=== PATIENT | female | born 1980 | race Caucasian/White ===

== ENCOUNTER 2019-02-02 15:53 | Emergency (ER) | payer BC, OTHER ==
[~2019-02-02] VITALS: Ht 162.6 cm; Wt 82.7 kg
[2019-02-02 17:38] LABS: BASOPHILS % (AUTO) 0.5 % (0-1); EOSINOPHILS # (AUTO) 0.1 X10'3 (0-0.9); EOSINOPHILS % (AUTO) 1.2 % (0-6); HEMATOCRIT 38.1 % (35.0-45.0); LYMPHOCYTES # (AUTO) 2.7 X10'3 (1.1-4.8); LYMPHOCYTES % (AUTO) 33.7 % (21-51); MEAN CORPUSCULAR HEMOGLOBIN 33.5 PG (27.0-31.0); MEAN CORPUSCULAR HGB CONC 34.1 g/dL (33.0-36.5); MEAN CORPUSCULAR VOLUME 98.3 FL (78-98); MEAN PLATELET VOLUME 7.8 FL (7.4-10.4); MONOCYTES # (AUTO) 0.6 X10'3 (0-0.9); NEUTROPHILS # (AUTO) 4.6 X10'3 (1.8-7.7); NEUTROPHILS % (AUTO) 57.6 % (42-75); PLATELET COUNT 353 X10'3 (140-440); RED BLOOD COUNT 3.88 X10'6 (4.20-5.60); RED CELL DISTRIBUTION WIDTH 12.7 % (11.5-14.5); WHITE BLOOD COUNT 8.1 X10'3 (4.5-11.0)
[2019-02-02 17:50] LABS: PARTIAL THROMBOPLASTIN TIME 27 SECONDS (22-32)
[2019-02-02 17:52] LABS: ALANINE AMINOTRANSFERASE 31 U/L (12-78); ALBUMIN 3.9 G/DL (3.4-5.0); ALKALINE PHOSPHATASE 86 IU/L (46-116); ANION GAP 9 (8-16); ASPARTATE AMINO TRANSFERASE 14 U/L (10-37); BILIRUBIN,TOTAL 0.6 MG/DL (0.1-1.0); BLOOD UREA NITROGEN 11 MG/DL (7-18); BUN/CREATININE RATIO 18.3 (6.6-38.0); CALCIUM 8.8 MG/DL (8.5-10.1); CHLORIDE 106 MMOL/L (99-107); GLUCOSE 102 MG/DL (70-104); MAGNESIUM 1.9 MG/DL (1.5-2.4); POTASSIUM 3.9 MMOL/L (3.5-5.1); SODIUM 143 MMOL/L (135-145); TOTAL CARBON DIOXIDE 27.6 MMOL/L (24-32); TOTAL PROTEIN 7.7 G/DL (6.4-8.2); eGFR > 90 ML/MIN
[2019-02-02 19:21] LABS: CLARITY,URINE CLEAR (Clear); COLOR,URINE YELLOW (Yellow); GLUCOSE, URINE NEGATIVE (Neg); KETONES,URINE NEGATIVE (Neg); LEUKOCYTE ESTERASE ,URINE NEGATIVE (Neg); NITRITES, URINE NEGATIVE (Neg); OCCULT BLOOD,URINE NEGATIVE (Neg); PROTEIN,URINE NEGATIVE (Neg); UROBILINOGEN,URINE 0.2 E.U/dL (0.2-1.0)
[2019-02-02 19:24] LABS: UA COLLECTION TYPE CLN CATCH MIDSTREAM
[2019-02-02 21:14] VITALS: BP 128/86
== END 2019-02-02 21:15 | disposition home or self-care (01) ==
LOC: ER 15:54
DX: I16.0 Hypertensive urgency (principal); H53.8 Other visual disturbances; Z88.1 Allergy status to other antibiotic agents; Z88.5 Allergy status to narcotic agent
CPT/HCPCS: 36415; 70450; 71045; 80053; 81003; 83735; 85025; 85610; 85730; 93005; 99284

== ENCOUNTER 2022-08-12 12:12 | Emergency (ER) | payer BC, OTHER ==
[~2022-08-12] VITALS: Ht 162.6 cm; Wt 75.0 kg
[2022-08-12 14:09] LABS: BASOPHILS # (AUTO) 0.1 X10'3 (0-0.2); BASOPHILS % (AUTO) 0.8 % (0-1); EOSINOPHILS # (AUTO) 0.1 X10'3 (0-0.9); EOSINOPHILS % (AUTO) 1.8 % (0-6); HEMATOCRIT 38.4 % (35.0-45.0); LYMPHOCYTES % (AUTO) 27.7 % (21-51); MEAN CORPUSCULAR HEMOGLOBIN 36.9 PG (27.0-31.0); MEAN CORPUSCULAR HGB CONC 33.8 g/dL (33.0-36.5); MEAN CORPUSCULAR VOLUME 109.1 FL (78-98); MEAN PLATELET VOLUME 7.4 FL (7.4-10.4); MONOCYTES # (AUTO) 0.6 X10'3 (0-0.9); MONOCYTES % (AUTO) 8.7 % (2-12); NEUTROPHILS # (AUTO) 4.3 X10'3 (1.8-7.7); PLATELET COUNT 328 X10'3 (140-440); RED BLOOD COUNT 3.52 X10'6 (4.20-5.60); RED CELL DISTRIBUTION WIDTH 13.7 % (11.5-14.5); WHITE BLOOD COUNT 7.1 X10'3 (4.5-11.0)
[2022-08-12 14:24] LABS: ALANINE AMINOTRANSFERASE 21 U/L (12-78); ALBUMIN 3.5 G/DL (3.4-5.0); ALKALINE PHOSPHATASE 68 IU/L (46-116); ANION GAP 11 (8-16); ASPARTATE AMINO TRANSFERASE 21 U/L (10-37); BILIRUBIN,TOTAL 0.9 MG/DL (0.1-1.0); BLOOD UREA NITROGEN 12 MG/DL (7-18); BUN/CREATININE RATIO 14.5 (6.6-38.0); CALCIUM 8.7 MG/DL (8.5-10.1); CHLORIDE 107 MMOL/L (99-107); CREATININE 0.83 MG/DL (0.40-0.90); GLUCOSE 94 MG/DL (70-104); LIPASE 100 U/L (73-393); POTASSIUM 3.7 MMOL/L (3.5-5.1); SODIUM 145 MMOL/L (135-145); TOTAL CARBON DIOXIDE 27.5 MMOL/L (24-32); eGFR 75 ML/MIN
[2022-08-12 14:35] LABS: URINE HCG NEGATIVE (NEG)
[2022-08-12 14:44] LABS: CLARITY,URINE CLEAR (Clear); COLOR,URINE YELLOW (Yellow); GLUCOSE, URINE NEGATIVE (Neg); KETONES,URINE NEGATIVE (Neg); LEUKOCYTE ESTERASE ,URINE NEGATIVE (Neg); NITRITES, URINE NEGATIVE (Neg); OCCULT BLOOD,URINE TRACE-INTACT (Neg); PROTEIN,URINE NEGATIVE (Neg); UROBILINOGEN,URINE 0.2 E.U/dL (0.2-1.0)
[2022-08-12 14:46] LABS: UA COLLECTION TYPE CLN CATCH MIDSTREAM
[2022-08-12 14:53] LABS: BACTERIA,URINE NONE SEEN /HPF (Neg); MUCUS STRANDS NONE SEEN /LPF (Neg); RBC,URINE 0-2 /HPF (0-2); SQUAMOUS EPITHELIAL CELL,UR FEW /LPF (FEW); WBC,URINE 0-4 /HPF (0-4)
[2022-08-12 15:10] VITALS: BP 135/83
[2022-08-12] MEDS ORDERED: TRAM50TA2 PO (16:13)
[2022-08-12] MEDS ORDERED: ONDA4TAB12 PO (16:13)
[2022-08-12] MEDS ORDERED: LEVO-65 PO (16:22)
== END 2022-08-12 16:27 | disposition home or self-care (01) ==
LOC: ER 12:13
DX: K80.50 Calculus of bile duct without cholangitis or cholecystitis without obstruction (principal); K80.20 Calculus of gallbladder without cholecystitis without obstruction; E03.9 Hypothyroidism, unspecified; Z88.0 Allergy status to penicillin; Z88.1 Allergy status to other antibiotic agents; Z88.5 Allergy status to narcotic agent
CPT/HCPCS: 36415; 76700; 80053; 81001; 81025; 83690; 85025; 99284

== ENCOUNTER 2025-01-17 08:07 | Inpatient (IN) | payer BC, OTHER ==
[~2025-01-17] VITALS: Ht 165.1 cm; Wt 73.0 kg
[~2025-01-17 08:07] MED LIST: LEVO50TA PO; NALT50TA5 PO; ONDA-243 PO; PHEN37.58 PO
--- NOTE | 2025-01-17 08:23 | ELECTROCARDIOGRAPH REPORT ---
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 Bret Browne Measurements Intervals [place] Rate: 66 P: 33 UT: 153 QRS: 5 QRSD: 124 T: 20 QT: 427 QTc: 448 Interpretive Statements Sinus rhythm IVCD, consider atypical RBBB Electronically Signed On 01-17-2025 20:10:[address] Bret Browne Please click the below link to view image of tracing.
--- NOTE | 2025-01-17 08:27 | Physician Documentation ---
History of Present Illness ~ Chief Complaint: Stroke Alert Stated Complaint: STROKE ALERT Time Seen by MD: 08:19 Primary Medical Doctor: Mai Source: patient Mode of Arrival: EMS Exam Limitations: no limitations HPI Patient with a history of benign pituitary tumor and sinus infections in with neurologic symptoms that started when she woke up at 7:00 a.m.. She also has a history of migraines. She gets a migraine 1 to 2 times a year. She woke up at 2:00 a.m. and was fine and then went back to sleep and woke up at 7 and had a bunch of green drainage come out of her sinuses. She also felt like her left arm was dissociated like she did not have control over it and she felt like her speech was slurred. The speech slurring lasted about 30 minutes but she feels like her left arm is still wear. She has a right-sided headache that is 3/10. It is starts on the top of her head and goes down her neck. No posterior neck pain. No fever. She states that her migraines usually get an aura without an actual headache and she can take something and it goes away. Her vision seems blurred on the left side. That does seem normal with what she gets with a migraine. She states her sinuses are messed up and she just finished prednisone and Levaquin from her ENT doctor here. She has follow up with a specialist for the 1st time at [place] in late January. Used to be a light smoker but quit 11 years ago. Does take marijuana every night to help her sleep. No alcohol. Takes mounjaro for weight loss. Medication Reconciliation Allergies: Coded Allergies: Penicillins (Verified Allergy, Unknown, 08/12/22) cephalexin (Verified Allergy, Unknown, 08/12/22) hydrocodone (Verified Allergy, Unknown, 08/12/22) Uncoded Allergies: PENICILLIN (Allergy, Intermediate, eyes swell shut, 10/24/22) PCN (Allergy, Unknown, 02/02/19) Scheduled [maunjauro], 2.5 MG SQ FRIDAY, (Reported) Discontinued Medications Levothyroxine Sodium (Synthroid), 1 TAB PO DAILY, (Reported) Discontinued Reason: patient no longer taking Naltrexone Hcl (Naltrexone Hcl), 1 TAB PO DAILY Discontinued Reason: patient no longer taking ONDANSETRON ODT 4mg tablet (Ondansetron Odt), 1 TABLET PO Q6H PRN for nausea/vomiting Discontinued Reason: patient no longer taking Phentermine HCl (Phentermine HCl), 1 TAB PO QAM, (Reported) Discontinued Reason: patient no longer taking Past Medical History Past Medical History: *ENDOCRINE*, Hypothyroidism Past Surgical History: other Drug Use: none Lives with: Spouse Lives In: Home Occupation: employed Review of Systems All Other Systems at this time: Reviewed and Negative Physical Exam Vital Signs: Temperature: 98.5, Source: Oral, Heart Rate: 79, Respiratory Rate: 14, BP: 161/113, Pulse Oximetry: 98, Weight: 73.000 General Appearance: alert, WD/WN, no apparent distress Pupils/EOM/Fundus: PERRLA, EOM intact Neck: normal inspection, full range of motion, supple Respiratory: lungs clear, normal breath sounds, no respiratory distress Cardiovascular: regular rate, rhythm, no JVD, no murmur Extremities: normal inspection, no calf tenderness Orientation / Memory / CN Exam: oriented x3, executive producer II-XII nml as tested Motor / Sensory: no motor deficit, no sensory deficit, no pronator drift, other (Negative stroke scale) Coordination / Gait: normal finger to nose Psychiatric: appropriate Skin: warm/dry, normal color t-PA t-PA given w/in 2hrs?: No (Patient was not a candidate for tPA as she was outside of the window) Progress Progress Note Patient in with possible stroke versus migraine. Discussed with Dr. Orourke the neurologist who recommended admission for further evaluation of stroke. Discussed this with the patient who expressed understanding. Patient is stable on admission to hospitalist team. Results/Orders Results/Orders Orders - REY HUSSEIN MD Monitor (01/17/25 08:20) 2 Large Bore Ivs (01/17/25 08:20) Chest,Single View (01/17/25 08:20) Accucheck (01/17/25 08:20) Ct Stroke Alert (01/17/25 08:00) [place] Prov.Neuro Consult (01/17/25 08:20) Page Hospitalist (01/17/25 09:04) Fill Out Med Reconciliation (01/17/25 09:04) Completed Orders - REY HUSSEIN MD Cbc/Diff (01/17/25 08:20) Electrocardiogram (01/17/25 08:20) Chest,Single View (01/17/25 08:20) Ct Stroke Alert (01/17/25 08:00) BMP (01/17/25 08:20) PTT (01/17/25 08:20) Pt Inr (01/17/25 08:20) Labetalol Inj. (Trandate 20 Mg/4ml Syrin (01/17/25 08:30) Ketorolac Trometh 30mg/Ml Vial (Toradol (01/17/25 09:00) Hgb A1c (01/17/25 08:37) MG (01/17/25 08:37) TSH (01/17/25 08:37) Medications Received in ER Medications (Trade) Dose Ordered Sig/Gaurav Route PRN Reason Start Time Stop Time Status Last Admin Dose Admin (Toradol inj. 30mg/ml) 30 mg ONCE ONCE IV 01/17/25 09:00 01/17/25 09:01 DC 01/17/25 09:11 30 MG Sodium Chloride 1,000 ml @ 100 mls/hr Q10H IV 01/17/25 10:15 01/17/25 10:42 100 MLS/HR Vital Signs 01/17/25 01/17/25 01/17/25 01/17/25 08:08 08:18 08:40 08:49 Temp 98.5 Pulse 79 71 Resp 14 11 12 B/P (MAP) 161/113 137/97 (110) Pulse Ox 100 98 100 O2 Delivery Room Air* O2 Flow Rate 0 0 FiO2 21 01/17/25 01/17/25 01/17/25 09:03 09:11 09:40 Pulse 71 Resp 13 14 14 B/P (MAP) 133/84 Pulse Ox 99 Laboratory Tests Test 01/17/25 08:37 White Blood Count 7.3 Red Blood Count 3.95 L Hemoglobin 14.1 Hematocrit 41.8 Mean Corpuscular Volume 105.7 H Mean Corpuscular Hemoglobin 35.7 H Mean Corpuscular Hemoglobin Concent 33.8 Red Cell Distribution Width 14.2 Platelet Count 309 Mean Platelet Volume 7.9 Neutrophils (%) (Auto) 64.4 Lymphocytes (%) (Auto) 25.4 Monocytes (%) (Auto) 7.6 Eosinophils (%) (Auto) 1.9 Basophils (%) (Auto) 0.7 Neutrophils # (Auto) 4.7 Lymphocytes # (Auto) 1.8 Monocytes # (Auto) 0.6 Eosinophils # (Auto) 0.1 Basophils # (Auto) 0.1 CBC Comment Prothrombin Time 9.8 INR International Normalized Ratio 1.0 Activated Partial Thromboplast Time 26 Coagulation Comments Sodium Level 140 Potassium Level 4.3 Chloride Level 105 Carbon Dioxide Level 27.0 Anion Gap 8 Blood Urea Nitrogen 13 Creatinine 0.66 Estimated GFR/1.73 m2 > 90 BUN/Creatinine Ratio 19.7 Glucose Level 98 Hemoglobin A1c 4.9 Calcium Level 8.9 Magnesium Level 1.9 Albumin 3.8 Thyroid Stimulating Hormone (TSH) 1.55 Chemistry Comments EKG/XRAY/CT/US/VASC/MRI EKG : EKG Rate: 66 EKG: NSR, no ST T wave changes Hypertrophy: none Medical Decision Making Additional Information Differential includes but is not limited to: CVA, TIA, migraine, electrolyte derangement, dehydration, sinus infection Departure Disposition: 09 ADMITTED INPATIENT Admitted to Inpatient Unit: yes, to hospitalist Admission Level of Care: Med/Surg Impression: Primary Impression: Left-sided weakness Additional Impression: Blurred vision, left eye Condition: Stable Referrals: NO PRIMARY CARE PROVIDER (PCP) Education Educated: Patient, Family Educated regarding: diagnosis Signature Scribe Signature: No scribe used Attestation: No scribe used REY HUSSEIN MD Jan 17, 2025 08:27
[2025-01-17] MEDS: labetalol 20mg/4ml (5mg/ml) syringe IV ONE (08:30)
--- NOTE | 2025-01-17 08:43 | RADIOLOGY REPORT ---
CHEST RADIOGRAPH Indication: Stroke Alert Technique: Single frontal view of the chest was obtained COMPARISON: None FINDINGS: Lines and Tubes: None Lungs: Clear Pleura: No effusion. No pneumothorax. Cardiomediastinal contours: Unremarkable Bones: Unremarkable IMPRESSION: No acute disease.
--- NOTE | 2025-01-17 08:47 | RADIOLOGY REPORT ---
CT CT STROKE ALERT INDICATION: Stroke Alert EXAM DATE: 01/17/2025 08:21 AM COMPARISON: None RADIATION DOSE: CTDIvol: 62 mGy, DLP: 1229 mGy*cm PROCEDURE: CT scans of the head were obtained from the vertex to the skull base. Sagittal and coronal reconstructions were provided. All CT scans at this medical facility are performed using dose modulation techniques as appropriate t o a performed exam including the following: Automated exposure control was utilized; adjustment of th e MA and/or KV according to patient size; and use of iterative reconstruction technique. FINDINGS: There is sulcal and ventricular prominence. The brainshows normal morphology and landaverde-whi te matter differentiation, without intracranial hemorrhage, extra-axial fluid collection, mass effect or acute large vessel infarct. The ventricles are normal in size. The basal cisterns are patent. The skull and visible facial bones are intact. The paranasal sinuses are opacified with mucous. The mast oid air cells and middle ear cavities are well-aerated. The soft tissues of the scalp are unremarkabl e. IMPRESSION: No acute intracranial abnormality.
[2025-01-17 08:54] LABS: MEAN PLATELET VOLUME 7.9 FL (7.4-10.4); RED CELL DISTRIBUTION WIDTH 14.2 % (11.5-14.5)
--- NOTE | 2025-01-17 09:04 | CONSULTATION REPORT ---
History of Present Illness Providers to CC ~ Refering MD: Gerri at [facility] Allergies: Coded Allergies: Penicillins (Verified Allergy, Unknown, 08/12/22) cephalexin (Verified Allergy, Unknown, 08/12/22) hydrocodone (Verified Allergy, Unknown, 08/12/22) Uncoded Allergies: PENICILLIN (Allergy, Intermediate, eyes swell shut, 10/24/22) PCN (Allergy, Unknown, 02/02/19) Home Medications Home Medications Active Ondansetron Odt (Ondansetron HCl) 4 Mg Tab.rapdis 1 Tablet PO Q6H PRN Naltrexone Hcl 50 Mg Tablet 1 Tab PO DAILY Reported Synthroid (Levothyroxine Sodium) 50 Mcg Tablet 1 Tab PO DAILY Phentermine HCl 37.5 Mg Tablet 1 Tab PO QAM Physical Exam Last Vital Signs Recorded: Temperature: 98.1, Source: Oral, Heart Rate: 71, Respiratory Rate: 13, BP: 133/84, Pulse Oximetry: 99, Weight: 73.000 Neck: normal inspection, full range of motion, supple Respiratory: lungs clear, normal breath sounds, no respiratory distress Cardiovascular: regular rate, rhythm, no JVD, no murmur Assessment/Plan Additional Plan [place] [facility] Note # Demographics Consult Type: Acute Stroke Level 2 (4.5-24 hrs) Patient Location: Emergency Room First Name: AILEEN Last Name: IVA Date of : 1980 Age: 44 Gender: Female Facility: [facility] Time of Initial Page ([place] Time): 01/17/2025 08:23 Time of Return Call ( Time): 01/17/2025 08:24 # HPI Chief Complaint: - weakness (focal) History: 44 y/o woman woke up normal at 2 AM in setting of sinus infection. Then had sudden green draining from her nose. Slept for about 90 minutes but woke with difficulty breathing due to sinus symptoms. Then got up at 7:10 and walking to the bathroom her left arm was not responding to her. Then called her boyfriend and her speech was slurred. Had blurred vision on the left side. Does get migraines with flashing lights which she had also. Now can moving the arm well. Left arm symptoms lasted approx 5 minutes. No thinners. Was normal when first started walking in to the bathroom. Never had similar symptoms previously. Does have hx of brain tumor removed at [place]--pituitary tumor. Last checked 8 months ago. # Scores Time of exam and NIHSS (): 01/17/2025 08:37 Level of Consciousness 1a: [0] = Alert; keenly responsive LOC Questions 1b: [0] = Answers both questions correctly LOC Commands 1c: [0] = Performs both tasks correctly Best Gaze 2: [0] = Normal Visual 3: [0] = No visual loss Facial Palsy 4: [0] = Normal symmetrical movements Motor Arm Left 5a: [0] = No drift Motor Arm Right 5b: [0] = No drift Motor Leg Left 6a: [0] = No drift Motor Leg Right 6b: [0] = No drift Limb Ataxia 7: [0] = Absent Sensory 8: [0] = Normal Best Language 9: [0] = No aphasia Dysarthria 10: [0] = Normal Extinction and Inattention 11: [0] = No abnormality NIHSS Total: 0 # Exam Vitals: vital signs reviewed SBP: 137 DBP: 97 Cranial Nerves: left sided vision is blurred but no # Data Head CT: - no bleed - preliminarily reviewed by me, please refer to radiology read for official reading # Assessment Impression: - Weakness Possible TIA/Minor stroke vs other stroke mimics # Plan Thrombolytic/Intervention: NOT IV Thrombolysis or IA Intervention candidate Thrombolytic Exclusion (< 3 hour window): - non-disabling deficit Intraarterial Exclusion: - clinical exam not consistent with presence of large vessel occlusion (LVO), can reconsider if LVO found on vascular imaging Target Blood Pressure: SBP < 220 Labs: - hemoglobin A1c - lipid panel Imaging: (urgency: STAT): - CT Angiogram Head and CT Angiogram Neck AND call back with results if abnormal Imaging: (urgency: routine): - MRI Brain without contrast Diagnostic Test: - echo with bubble study Therapy/Evaluation: - PT/OT evaluation - speech/swallow consultation Medication: - aspirin 81 mg daily - start statin with goal of LDL < 70 Other: - If patient has any neurological deterioration please call me back immediately - LDL < 70 - permissive hypertension - telemetry monitoring - I have discussed my recommendations with the referring provider # Logistics Attestation of consult completion: The patient is located at: [facility]. Facility staff participated in the visit. I performed this telemedicine visit from my offsite office utilizing interactive 2 way audio and visual telecommunication technology. Total time spent in telemedicine encounter: I spent 20 minutes reviewing clinical data and/or imaging, obtaining history, examining the patient, communicating with the onsite care team, and in preparation of this report. # Demographics First Name: AILEEN Last Name: ENRIQUE Facility: [facility] SELMA BARBER MD Jan 17, 2025 09:04
[2025-01-17 09:08] LABS: CREATININE 0.66 MG/DL (0.40-0.90); TOTAL CARBON DIOXIDE 27.0 MMOL/L (24-32); eCRCL 96 ML/MIN; eGFR > 90 ML/MIN
[2025-01-17] MEDS: ketorolac trometh 30MG/ML vial 30 MG/ML VIAL IV ONE (09:11)
[2025-01-17 09:13] LABS: APTT 26 SECONDS (22-32); INR 1.0 INR
[2025-01-17] MEDS ORDERED: magnesium sulf-water 4G/100mL 100 ML IV PRN (10:15)
[2025-01-17] MEDS ORDERED: mag hydrox/Alum hydrox/simeth 30ml oral suspension PO PRN (10:15)
[2025-01-17] MEDS ORDERED: potassium Cl 40MEQ/1/2NS 520ml 520 ML IV PRN (10:15)
[2025-01-17] MEDS ORDERED: potassium Cl 20 mEq SR tablet PO PRN ×2 (10:15)
[2025-01-17] MEDS ORDERED: ondansetron/PF 4mg/2ml inj IV PRN (10:15)
[2025-01-17] MEDS ORDERED: magnesium sulf-water 2g/50mL 50 ML IV PRN (10:15)
[2025-01-17] MEDS ORDERED: magnesium hydroxide 30ml (MOM) UD suspension PO PRN (10:15)
[2025-01-17] MEDS ORDERED: magnesium Cl slow-release 64mg tablet PO PRN (10:15)
[2025-01-17] MEDS: normal saline 1000ml 1,000 ML IV SCH (10:42)
[2025-01-17] MEDS ORDERED: [UNRECOGNIZED DRUG - OTHER] SQ (10:55)
[2025-01-17] MEDS ORDERED: TIRZ2.5P SQ (11:15)
--- NOTE | 2025-01-17 12:37 | RADIOLOGY REPORT ---
INDICATION: stroke COMPARISON: None TECHNIQUE: CTA head with intravenous contrast. CTA neck with intravenous contrast. 3D image postproce ssing was performed on a dedicated workstation and images were used for interpretation and reporting. Radiation Dose Information: CT Dose: CTDI volume is 18 mGy. Dose-length product is 618 mGy*cm CONTRAST: Type of contrast: Omni 350 Contrast injected: 100 ml FINDINGS: CTA head: There is normal enhancement of the visualized distal internal carotid, anterior and middle cerebral a rteries. There is a normal anterior communicating artery complex. The vertebral, basilar, cerebellar and posterior cerebral arteries are within normal limits. The early parenchymal enhancement is grossl y unremarkable. The visualized intracranial venous structures are grossly unremarkable. Partially emp ty sella. CTA neck: The visualized thoracic aortic arch and proximal great vessels are unremarkable. The left common, internal and external carotid arteries are within normal limits. The right common, internal and external carotid arteries are within normal limits. The cervical segments of the right and left vertebral arteries are within normal limits. The limited visualized lung apices are clear. Palmer tonsils appear enlarged right greater than lef t. Bilateral maxillary and ethmoid sinus disease. IMPRESSION: 1. No evidence of hemodynamically significant intracranial stenosis, proximal occlusion or aneurysm. 2. No evidence of hemodynamically significant carotid stenosis or dissection. 3. Mild prominence of the palatine tonsils right greater than left. Clinical correlation and direct inspection is recommended. 4. Partially empty sella. All CT scans at this medical facility are performed using dose modulation techniques as appropriate t o a performed exam including the following: Automated exposure control was utilized; adjustment of th e MA and/or KV according to patient size; and use of iterative reconstruction technique. HS:Y
--- NOTE | 2025-01-17 12:47 | HISTORY AND PHYSICAL-Residence ---
History & Physical Providers to CC Resident Creating Document: FABBY ORTEGA, RES ~ History of Present Illness Primary Medical Doctor: Gerri at [facility] Reason for Admit\Complaint: Slurred speech History of Present Illness 44-year-old female patient with past medical history of migraine, pituitary tumor S/P surgical removal five years ago, end-stage renal diabetes, came to the hospital with chief complaint of slurred speech. The patient states that she woke up around 2:00 a.m. in the morning with some sinus congestion, the patient was able to go back to sleep. She woke up approximately at 7:00 a.m. at that time she decided to call to her boyfriend and she states that during this time she was completely normal. After that call she went to the restroom and suddenly she felt that the sensation of her left arm was diminished stating that when she touched her abdomen she was able to feel something touching her abdomen but she did not feel left her arm. After noticing this she tried touching her face and she experienced the same sensation where she felt something touching her face but she did not feel her left arm; because of this the patient decided to do this in front of her mirror and she noticed some facial droop in the right side of his mouth. Because of the symptoms the patient called again to her boyfriend who noticed that she was with slurred speech reason for which he decided to bring her to the hospital. Associated to these the patient also endorses headache localized in the right parietal area with some radiation to the right side of his neck currently 3/10 in intensity described as a dull ache pain. Allergies: Coded Allergies: Penicillins (Verified Allergy, Unknown, 08/12/22) cephalexin (Verified Allergy, Unknown, 08/12/22) hydrocodone (Verified Allergy, Unknown, 08/12/22) Uncoded Allergies: PENICILLIN (Allergy, Intermediate, eyes swell shut, 10/24/22) PCN (Allergy, Unknown, 02/02/19) Home Medications Home Medications Active Reported Mounjaro (Tirzepatide) 2.5 Mg/0.5 Ml Pen.injctr Mg SQ FRIDAY Past Medical History Past Medical History Migraines for which she occasionally takes ibuprofen 200 mg as needed as abortive therapy. Brain tumor (pituitary tumor) removed five years ago in [place]. She does have a follow-up appointment in January. Gestational diabetes 10 years ago. Obesity currently using [place] to lose weight. She does have a history of hypothyroidism currently not taking medication, as per patient after her pituitary mass was removed on further follow-up she did not need to keep taking medication for his thyroid. Acute sinusitis two weeks ago treated with the prednisone and Levaquin two weeks ago by her ENT. Past Surgical History Surgical History Comment Pituitary tumor s/p surgical removal five years ago in [place]. Cholecystectomy 1-1/2 years ago. Two C-sections. Tummy tack. Breast reduction surgery. Past Social History Smoking: Quit greater than 1 year (As per patient she quit smoking 11 years ago, she used to smoke 1/4 of pack a day for 15 years.) Alcohol Use: Rarely Drug Use: Marijuana (She endorses the use of marijuana gummies for sleeping.) Lives with: Spouse, Other (The patient lives with her boyfriend.) Lives In: Home Occupation: employed (Nurse) ROS All Other Systems: Reviewed and Negative Exam Vitals: Vital Signs Date Time Temp Pulse Resp B/P (MAP) Pulse Ox O2 Delivery O2 Flow Rate FiO2 01/17/25 09:40 14 01/17/25 09:03 71 133/84 99 01/17/25 08:40 0 01/17/25 08:18 Room Air* 21 01/17/25 08:08 98.5 General: Well alert, well oriented, not confused, not agitated, not in acute distress, well cooperated during the physical. HEENT: Conjunctive are pink, sclerae clear, no icterus, pupil is equal in both sides, reactive to light, no ear discharge, no pharyngeal erythema or an edema. Neck: Supple, no JVD, no lymphadenopathy and thyromegaly. Chest: Equal air entry on both lungs, no additional sounds no rhonchi no wheezing at the moment. Cardiovascular: S1-S2 regular sinus rhythm and, regular rate, no gallops, no rubs, no murmurs Abdomen: No visible peristalsis, Bowel sounds present on auscultation, soft, nontender, no guarding, no rigidity Extremities: No obvious deformities, no pitting edema bilaterally, capillary refill intact, peripheral pulsations are intact on both sides Central Nervous System: No focal neurological deficits, no motor or sensory weakness in all 4 extremities, could move all 4 extremities, 2+ deep tendon reflexes, negative Babinski, negative Fay sign, cranial nerves preserved, left inferior quadrantanopia. Musculoskeletal: No joint swelling, deformities, inflammations, and no scoliosis and back tenderness. Presence of left inferior quadrantanopia Skin: Warm and dry. Diagnostic Data Last Recorded Lab Results: 01/17/25 0837 01/17/25 0837 Diagnostic Data: Laboratory Tests Test 01/17/25 08:37 Prothrombin Time 9.8 SECONDS (9.0-12.0) INR International Normalized Ratio 1.0 INR Activated Partial Thromboplast Time 26 SECONDS (22-32) Coagulation Comments Advance Care Planning Advanced Care plannin - 30 Minutes (I spent a total of 17 minutes on reviewing various resuscitative measures/ACP with the patient at the time of admission. The patient has decided on a full code status.) Additional Plan Assessment and plan: 44-year-old female patient came to the hospital with chief complaint of slurred speech, altered sensation of the left arm. Stroke versus TIA: The patient came to the hospital with chief complaint of slurred speech, altered sensation of the left arm, currently resolving. Neurology was consulted. CTA of the head and neck: No evidence of hemodynamically significant intracranial stenosis, proximal occlusion or aneurysm. No evidence of hemodynamically significant carotid stenosis or dissection. Mild prominence of the palatine tonsils right greater than left. Clinical correlation and direct inspection is recommended. Partially empty sella. Head CT scan: No acute intracranial abnormality. Hemoglobin A1c and TSH within reference range. Follow-up lipid panel. Follow-up echocardiogram and MRI of the head. Permissive hypertension. Labetalol PRN for SBP more than 220 or DBP more than 90 mmHg. Aspirin 81 mg daily. Atorvastatin 80 mg daily. NS at 100 mL/hour. Migraine: The patient received ketorolac 30 mg once in the ER. Code status: Full code DVT prophylaxis: SCDs Analgesia/sedation: Morphine Line/tube: PIV GI prophylaxis: None Nutrition: Regular diet PT: Ordered Prognosis: Guarded Disposition: The patient will be admitted to ortho floor with telemetry. Fabby Fu Internal Medicine Resident [facility] Date of Service: Jan 17, 2025 Billing Provider: JOSHUA ARCHULETA MD Common Visit Codes: 12585-[id number] INP/OBS CARE (HIGH) Secondary Visit Codes: [id number] CARE PLAN 30 MINUTES FABBY ORTEGA, RES Jan 17, 2025 12:47 JOSHUA ARCHULETA MD Jan 18, 2025 21:52
[2025-01-17 13:17] VITALS: BP 127/72; PULSE 75; RESP 16; TEMP 98; O2SAT 99
[2025-01-17] MEDS ORDERED: labetalol 20mg/4ml (5mg/ml) syringe IV PRN (14:25)
[2025-01-17] MEDS: diazepam inj 5 MG/ML inj. IV ONE (16:19)
--- NOTE | 2025-01-17 17:45 | RADIOLOGY REPORT ---
MRI brain HISTORY: stroke symptoms, slurred speech, left arm weakness Comparison: CT brain done 01/17/2025 TECHNIQUE: MR was performed with a surface coil at 1.5 T magnet. Sagittal, axial and coronal T1 and T 2-weighted images were obtained. FINDINGS: Small scattered areas of signal hyperintensity on diffusion-weighted images. On ADC maps a nd exponential ADC images these areas are not seen. On FLAIR imaging sequences small foci of T2 signa l hyperintensity are present. On gradient echo images no areas of T2 star signal hypointensity No hydrocephalus or midline shift. No extra-axial mass lesions or fluid collections There is mucosal thickening of the paranasal sinuses. Masses in the sella or cerebellopontine angles IMPRESSION: Small scattered areas restricted diffusion in the right frontal and parietal cortices without corresp onding changes on ADC maps or exponential ADC. I believe these may represent acute/subacute ischemic events given the presence of left sided symptoms
[2025-01-17 18:00] VITALS: BP 119/78; PULSE 60; RESP 15; TEMP 98.8; O2SAT 99
--- NOTE | 2025-01-17 18:46 | CARDIOLOGY REPORT ---
APPROVED REPORT EXAM: Limited 2D, Doppler, and color-flow Echocardiogram with saline. Patient Location: [facility] Rhythm: SINUS Indications CEREBRAL VASCULAR ACCIDENT EVALUATE FOR PFO Ends Down Checker: NONE Previous echo: NONE 2D Dimensions RVDd 4.2 cm IVSd 1.0 (0.7-1.1cm) LVDd 4.2 cm PWd 0.9 (0.7-1.1cm) IVSs 1.1 (0.8-1.2cm) LVDs 2.7 (2.5-4.0cm) PWs 1.6 (0.8-1.2cm) LVOT Diameter 1.92 (1.8-2.4cm) LVEF(%) 64.6 (>50%) FS (%) 35.0 % SV 51.0 ml CO 3.0 L/min M-Mode Dimensions Left Atrium(MM) 4.32 (2.5-4.0cm) Aortic Root 3.23 (2.2-3.7cm) Aortic Cusp Exc 1.36 (1.5-2.0cm) Aortic Valve AoV Peak Cristi. 139.9 cm/s AoV VTI 29.5 cm AO Peak GR. 7.8 mmHg AO Mean GR. 5 mmHg LVOT VTI 22.37 cm LVOT Peak Cristi. 98.3 cm/s STUART(VTI)/BSA 2.19 cm2/m2 STUART (VTI) 2.19 cm2 Mitral Valve MV E Velocity 61.1 cm/s MV Peak Gr. 2 mmHg MV DECEL TIME 292 ms MV A Velocity 77.2 cm/s MV PHT 72 ms E/A Ratio 0.8 MVA (PHT) 3.06 cm2 MV VMax75.4 cm/s Tricuspid Valve TR P. Velocity 216 cm/s RAP ESTIMATE 10 mmHg TR Peak Gr. 19 mmHg RVSP 29 mmHg LEFT VENTRICLE Normal LV size and wall thickness. Overall systolic function is normal. LVEF is 65%. RIGHT VENTRICLE RV is moderately dilated with normal function. ATRIA Left atrium is mildly dilated. Right atrium is atleast moderately dilated. Saline study was performed with 2 IV injections of 10 ccs of agitated normal saline at rest, with cough, and with valsalva. Neg ative saline study for right to left flow. AORTIC VALVE Trileaflet AV appears normal without stenosis. No insufficiency. MITRAL VALVE Mild MV annular calcification without stenosis. Mild regurgitation. TRICUSPID VALVE TV appears structurally normal with mild regurgitation. PULMONIC VALVE Normal PV without stenosis, physiologic insufficiency. GREAT VESSELS The aortic root is normal in size. PERICARDIUM Normal pericardium. No effusion. Other Information Study Quality: Adequate
[2025-01-17] MEDS: clopidogrel 300mg tablet PO ONE (19:50)
[2025-01-17] MEDS: docusate sod 100mg capsule PO SCH (20:00)
[2025-01-17] MEDS: K and/or MAG REPLACEMENT MC SCH (20:00)
[2025-01-18 06:00] VITALS: BP 121/72; PULSE 73; RESP 16; TEMP 97.4; O2SAT 99
[2025-01-18 06:02] LABS: MEAN PLATELET VOLUME 8.3 FL (7.4-10.4); RED CELL DISTRIBUTION WIDTH 14.2 % (11.5-14.5)
[2025-01-18 06:17] LABS: CHOL/HDL RATIO 2.0 (0.00-4.99); CREATININE 0.60 MG/DL (0.40-0.90); LDL CHOLESTEROL 68 MG/DL (50-100); TOTAL CARBON DIOXIDE 26.1 MMOL/L (24-32); eCRCL 105 ML/MIN; eGFR > 90 ML/MIN
[2025-01-18] MEDS ORDERED: ATOR20TA66 PO (09:42)
[2025-01-18] MEDS ORDERED: TIRZ2.5P SQ (09:51)
[2025-01-18 10:00] VITALS: BP 128/91; PULSE 80; RESP 18; TEMP 97.6; O2SAT 100
[2025-01-18] MEDS ORDERED: ASPI81TA52 PO (11:41)
[2025-01-18] MEDS ORDERED: CLOP75TA34 PO (11:41)
--- NOTE | 2025-01-18 16:35 | DISCHARGE SUMMARY-Residence ---
Discharge Summary Providers to Resident Creating Document: FABBY ORTEGA, RES ~ Discharge Summary Admission Diagnosis: Stroke Hospital Course DATE OF ADMISSION: 01/17/2025 DATE OF DISCHARGE: 01/18/2025 Discharge Diagnosis\Comment: Acute ischemic stroke in the level of the frontal, parietal and occipital area. Migraine Operations\Procedures: None Consultants: Neurology, Dr. Sanjay Orourke Complications: None Condition on DC: Stable New Medications: Aspirin (Aspirin EC) 81 Mg Tablet.dr 1 TAB PO DAILY for 30 Days, #30 TAB Atorvastatin Calcium (Atorvastatin Calcium) 20 Mg Tablet 40 MG PO DAILY for 30 Days, #60 TAB Clopidogrel Bisulfate (Clopidogrel) 75 Mg Tablet 75 MG PO DAILY for 30 Days, #30 TAB Discharge Summary: HPI: 44-year-old female patient with past medical history of migraine, pituitary tumor S/P surgical removal five years ago, gestational diabetes, came to the hospital with chief complaint of slurred speech. The patient states that she woke up around 2:00 a.m. in the morning with some sinus congestion, the patient was able to go back to sleep. She woke up approximately at 7:00 a.m. at that time she decided to call to her boyfriend and she states that during this time she was completely normal. After that call she went to the restroom and suddenly she felt that the sensation of her left arm was diminished stating that when she touched her abdomen she was able to feel something touching her abdomen but she did not feel left her arm. After noticing this she tried touching her face and she experienced the same sensation where she felt something touching her face but she did not feel her left arm; because of this the patient decided to do this in front of her mirror and she noticed some facial droop in the right side of his mouth. Because of the symptoms the patient called again to her boyfriend who noticed that she was with slurred speech reason for which he decided to bring her to the hospital. Associated to these the patient also endorses headache localized in the right parietal area with some radiation to the right side of his neck currently 3/10 in intensity described as a dull ache pain. Hospital course: 44-year-old female patient came to the hospital with chief complaint of slurred speech. The patient was admitted for further workup of possible stroke. Neurology was consulted, recommended echocardiogram, MRI. Tests were obtained, MRI showing stroke at the level of the frontal, parietal and occipital area. The patient reports significant improvement of symptoms upon the following day. The patient was started on medication based on combination of dual antiplatelet therapy with aspirin and clopidogrel, charge dose of 325 and 300 respectively given. The patient was continued on aspirin 81 mg daily and clopidogrel 75 mg daily to be continued for three weeks and then aspirin 81 mg daily will be continued as monotherapy. Initially the patient received atorvastatin 80 mg, lipid panel came back showing LDL of 68 and cholesterol levels of 162. Atorvastatin reduced to 40 mg daily. monitoring tech was started, no evidence of arrhythmias during the hospitalization. The patient remained hemodynamically stable with sooner than expected recovery for her diagnosis. Physical therapy evaluated the patient, the patient is able to ambulate. The patient will be discharged home. Discharge course: The patient remained hemodynamically stable. Recovery sooner than expected for her diagnosis. The patient will be discharged home with the following in structions: Come back to the emergency department or call 911 if weakness, chest pain, palpitations is evidenced. Follow up with your primary care physician within 2 weeks. Follow up with cardiology within 1 months for holter monitor. Take aspirin 81 mg 1 tablet daily. Take clopidogrel 75 mg 1 tablet daily for 3 weeks. Take atorvastatin 2 tablets of 20 mg daily. Physical exam: General: Well alert, well oriented, not confused, not agitated, not in acute distress, well cooperated during the physical. HEENT: Conjunctive are pink, sclerae clear, no icterus, pupil is equal in both sides, reactive to light, no ear discharge, no pharyngeal erythema or an edema. Neck: Supple, no JVD, no lymphadenopathy and thyromegaly. Chest: Equal air entry on both lungs, no additional sounds no rhonchi no wheezing at the moment. Cardiovascular: S1-S2 regular sinus rhythm and, regular rate, no gallops, no rubs, no murmurs Abdomen: No visible peristalsis, Bowel sounds present on auscultation, soft, nontender, no guarding, no rigidity Extremities: No obvious deformities, no pitting edema bilaterally, capillary refill intact, peripheral pulsations are intact on both sides Central Nervous System: No focal neurological deficits, no motor or sensory weakness in all 4 extremities, could move all 4 extremities, 2+ deep tendon reflexes, negative Babinski, negative Fay sign, cranial nerves preserved, left inferior quadrantanopia-currently resolved. Musculoskeletal: No joint swelling, deformities, inflammations, and no scoliosis and back tenderness. Skin: Warm and dry. Vital Signs Date Time Temp Pulse Resp B/P (MAP) Pulse Ox O2 Delivery O2 Flow Rate FiO2 01/18/25 10:00 97.6 80 18 128/91 (103) 100 Room Air 01/18/25 08:00 0.0 01/17/25 20:00 21 Laboratory Tests Test 01/17/25 08:37 01/18/25 05:20 01/18/25 07:28 White Blood Count 7.3 X10'3 8.0 X10'3 Red Blood Count 3.95 X10'6 3.70 X10'6 Hemoglobin 14.1 g/dl 13.4 g/dl Hematocrit 41.8 % 39.1 % Mean Corpuscular Volume 105.7 FL 105.7 FL Mean Corpuscular Hemoglobin 35.7 PG 36.1 PG Mean Corpuscular Hemoglobin Concent 33.8 g/dL 34.1 g/dL Red Cell Distribution Width 14.2 % 14.2 % Platelet Count 309 X10'3 269 X10'3 Mean Platelet Volume 7.9 FL 8.3 FL Neutrophils (%) (Auto) 64.4 % 66.0 % Lymphocytes (%) (Auto) 25.4 % 24.0 % Monocytes (%) (Auto) 7.6 % 7.2 % Eosinophils (%) (Auto) 1.9 % 2.4 % Basophils (%) (Auto) 0.7 % 0.4 % Neutrophils # (Auto) 4.7 X10'3 5.3 X10'3 Lymphocytes # (Auto) 1.8 X10'3 1.9 X10'3 Monocytes # (Auto) 0.6 X10'3 0.6 X10'3 Eosinophils # (Auto) 0.1 X10'3 0.2 X10'3 Basophils # (Auto) 0.1 X10'3 0.0 X10'3 CBC Comment Prothrombin Time 9.8 SECONDS INR International Normalized Ratio 1.0 INR Activated Partial Thromboplast Time 26 SECONDS Coagulation Comments Sodium Level 140 MMOL/L 140 MMOL/L Potassium Level 4.3 MMOL/L 3.8 MMOL/L Chloride Level 105 MMOL/L 107 MMOL/L Carbon Dioxide Level 27.0 MMOL/L 26.1 MMOL/L Anion Gap 8 7 Blood Urea Nitrogen 13 MG/DL 7 MG/DL Creatinine 0.66 MG/DL 0.60 MG/DL Estimated GFR/1.73 m2 > 90 ML/MIN > 90 ML/MIN BUN/Creatinine Ratio 19.7 11.7 Glucose Level 98 MG/DL 81 MG/DL Hemoglobin A1c 4.9 % Calcium Level 8.9 MG/DL 8.3 MG/DL Magnesium Level 1.9 MG/DL 1.7 MG/DL Albumin 3.8 G/DL 3.0 G/DL Thyroid Stimulating Hormone (TSH) 1.55 ulU/ml Chemistry Comments Total Bilirubin 1.9 MG/DL Aspartate Amino Transf (AST/SGOT) 22 U/L Alanine Aminotransferase (ALT/SGPT) 27 U/L Alkaline Phosphatase 52 IU/L Total Protein 6.6 G/DL Globulin 3.6 G/DL Albumin/Globulin Ratio 0.8 Triglycerides Level 50 MG/DL Cholesterol Level 161 MG/DL LDL Cholesterol 68 MG/DL HDL Cholesterol 82 MG/DL Cholesterol/HDL Ratio 2.0 Head MRI: Small scattered areas restricted diffusion in the right frontal and parietal cortices without corresponding changes on ADC maps or exponential ADC. I believe these may represent acute/subacute ischemic events given the presence of left sided symptoms Head/neck CTA: No evidence of hemodynamically significant intracranial stenosis, proximal occlusion or aneurysm. No evidence of hemodynamically significant carotid stenosis or dissection. Mild prominence of the palatine tonsils right greater than left. Clinical correlation and direct inspection is recommended. Partially empty sella. Echocardiogram: Normal LV size and wall thickness. Overall systolic function is normal. LVEF is 65%. Chest x-ray: No acute disease. Head CT scan: No acute intracranial abnormality. *Problems/Diagnosis: (1) Stroke Status: Acute (2) Migraine Status: Chronic Total Time Spent on D/C: > 30 Minutes Date of Service: Jan 18, 2025 Billing Provider: JOSHUA ARCHULETA MD Common Visit Codes: 01113-VRE/OBS DISCH DAY >30min Problem Qualifiers (1) Stroke: Laterality of affected vessel: right FABBY ORTEGA, RES Jan 18, 2025 16:27 JOSHUA ARCHULETA MD Jan 18, 2025 21:53
[2025-01-19] MEDS ORDERED: ROSU20TA98 PO (21:10)
== END 2025-01-18 14:00 | disposition home or self-care (01) | DRG 66 ==
LOC: ER 08:08 → ED HOLD 10:16 → EDBEDREQ 11:31 → ORTHO 4S 12:40
PROVIDERS: ADMIT Internal Medicine; ATTEND Internal Medicine
PROC: B3251ZZ Computerized Tomography (CT Scan) of Bilateral Common Carotid Arteries using Low Osmolar Contrast (ICD-10-PCS; principal; 2025-01-17)
PROC: B32G1ZZ Computerized Tomography (CT Scan) of Bilateral Vertebral Arteries using Low Osmolar Contrast (ICD-10-PCS; 2025-01-17)
PROC: B32R1ZZ Computerized Tomography (CT Scan) of Intracranial Arteries using Low Osmolar Contrast (ICD-10-PCS; 2025-01-17)
PROC: B3281ZZ Computerized Tomography (CT Scan) of Bilateral Internal Carotid Arteries using Low Osmolar Contrast (ICD-10-PCS; 2025-01-17)
DX: I63.9 Cerebral infarction, unspecified (principal); G43.909 Migraine, unspecified, not intractable, without status migrainosus; E03.9 Hypothyroidism, unspecified; Z88.0 Allergy status to penicillin; Z88.5 Allergy status to narcotic agent
CPT/HCPCS: 36415; 70450; 70496; 70498; 70551; 71045; 80048; 80053; 80061; 82607; 83036; 83735; 84443; 85025; 85610; 85730; 87081; 92508; 92616; 93005; 93306; 96361; 96374; 96375; 97161; 97530; 99285; G0378; J1885; J3360; J7030; Q0163; Q9967